=== PATIENT | male | born 1980 | race Two or more races ===

== ENCOUNTER 2020-06-03 10:14 | Day surgery (SDC) | payer OTHER | END 2020-06-03 14:20 | disposition home or self-care (01) | LOC: AMB-ENDOS 10:14 | PROVIDERS: ATTEND Surgery | DX: K57.32 Diverticulitis of large intestine without perforation or abscess without bleeding (principal); Z20.822 Contact with and (suspected) exposure to COVID-19 ==

== ENCOUNTER 2022-08-10 12:06 | Outpatient (CLI) | payer OTHER | END 2022-08-10 12:07 | disposition home or self-care (01) | LOC: LAB 12:06 | PROVIDERS: ATTEND Orthopaedic Surgery | DX: D64.89 Other specified anemias (principal); E88.89 Other specified metabolic disorders; D68.8 Other specified coagulation defects; N39.0 Urinary tract infection, site not specified; A49.02 Methicillin resistant Staphylococcus aureus infection, unspecified site; I49.9 Cardiac arrhythmia, unspecified; I10 Essential (primary) hypertension; Z76.89 Persons encountering health services in other specified circumstances ==